=== PATIENT | female | born 1960 | race Hispanic/Latino ===

== ENCOUNTER 2023-08-31 17:57 | Emergency (ER) | payer OTHER ==
[~2023-08-31] VITALS: Ht 154.9 cm; Wt 79.4 kg
[2023-08-31 18:53] LABS: APPEARANCE,URINE CLEAR (CLEAR); BILIRUBIN,URINE NEGATIVE (NEGATIVE); COLOR,URINE COLORLESS (YELLOW); GLUCOSE, URINE (UA) NEGATIVE (NEGATIVE); KETONES,URINE NEGATIVE (NEGATIVE); LEUKOCYTE ESTERASE ,URINE NEGATIVE Leu/uL (NEGATIVE); NITRATE,URINE NEGATIVE (NEGATIVE); OCCULT BLOOD,URINE NEGATIVE (NEGATIVE); PROTEIN,URINE NEGATIVE (NEGATIVE); UROBILINOGEN,URINE 0.2 mg/dL (0.2-1.0)
[2023-08-31 19:06] LABS: ADD UA MICROSCOPIC YES
[2023-08-31 19:07] LABS: RBC,URINE 0-1 /HPF (0-1); WBC,URINE 0-1 /HPF (0-1)
[2023-08-31 19:12] LABS: BASOPHILS # (AUTO) 0.09 K/uL (0.00-0.20); EOSINOPHILS # (AUTO) 0.29 K/uL (0.00-0.70); EOSINOPHILS % (AUTO) 3.2 % (0.0-8.0); HEMATOCRIT 41.8 % (36-48); IMMATURE GRANULOCYTE ABSOLUTE 0.03 K/uL (0-1); LYMPHOCYTES # (AUTO) 5.3 K/uL (1.0-4.8); LYMPHOCYTES % (AUTO) 58.2 % (21.0-51.0); MEAN CORPUSCULAR HEMOGLOBIN 27.7 pg (27.0-33.0); MEAN CORPUSCULAR HGB CONC 32.8 g/dL (32.0-36.0); MEAN CORPUSCULAR VOLUME 84.6 fL (79-99); MONOCYTES # (AUTO) 0.9 K/uL (0.1-1.0); MONOCYTES % (AUTO) 10.1 % (3.0-13.0); NEUTROPHILS # (AUTO) 2.5 K/uL (1.8-7.7); NEUTROPHILS % (AUTO) 27.2 % (40.0-77.0); PLATELET COUNT (AUTO) 266 K/uL (130-400); RED BLOOD CELL COUNT(AUTO) 4.94 MIL/uL (4.00-5.50); WHITE BLOOD COUNT (AUTO) 9.1 K/uL (4.8-10.8)
[2023-08-31 19:27] LABS: CREATININE 0.9 mg/dL (0.5-1.5); POTASSIUM 3.9 mmol/L (3.5-5.1)
[2023-08-31 19:32] LABS: ALBUMIN 3.7 g/dL (3.5-5.0); BILIRUBIN,TOTAL 0.3 mg/dL (0.2-1.0); TOTAL PROTEIN, SERUM 7.5 g/dL (6.0-8.3)
[2023-08-31] MEDS ORDERED: 0.9%NACL 1000ML 1,000 ML IV ONE (19:41)
[2023-08-31] MEDS ORDERED: 0.9%NACL 1000ML 1,000 ML IV SCH (20:00)
[2023-08-31] MEDS ORDERED: MORPHINE 2 MG SYG IVP ONE (20:00)
[2023-08-31] MEDS ORDERED: ONDANSETRON 4MG INJ IVP ONE (20:00)
[2023-08-31] MEDS ORDERED: IOHEXOL-350 75 ML VIAL IV ONE (20:29)
[2023-08-31 21:18] LABS: INR < 0.93 (0.85-1.15); PROTHROMBIN TIME 10.1 SEC (9.6-11.6)
[2023-08-31 21:19] LABS: PARTIAL THROMBOPLASTIN TIME 26.2 SEC (26.3-35.5)
[2023-08-31] MEDS ORDERED: DICYCLOMINE 20MG (10MG/ML) AMP IM SCH (21:25)
[2023-08-31] MEDS ORDERED: DICY20TA2 PO (21:35)
[2023-08-31] MEDS ORDERED: KETOROLAC 30MG VIAL (30MG/ML) ONE (22:12)
[2023-08-31 22:18] VITALS: BP 136/79; PULSE 78; RESP 18; O2SAT 98
[2023-08-31] MEDS ORDERED: KETOROLAC 30MG VIAL (30MG/ML) IM ONE (22:30)
== END 2023-08-31 22:25 | disposition home or self-care (01) ==
LOC: EDH 17:57
DX: K58.0 Irritable bowel syndrome with diarrhea (principal); R10.9 Unspecified abdominal pain; Z98.890 Other specified postprocedural states
CPT/HCPCS: 99285; 74177; 96374; 96361; 71045; 96375; 80053; 83690; 85025; 85610; 85730; 83605; 81001; 36415; 74176; 96372 ×2; J2270; J7030; J2405; J1885; J0500; Q9967